=== PATIENT | male | born 1965 | race Hispanic/Latino ===

== ENCOUNTER → 2019-03-07 | Outpatient (REF) | payer OTHER ==
[2019-03-10 08:10] LABS: BORDETELLA PARAPERTUSSIS PCR Negative (Negative); BORDETELLA PERTUSSIS BY PCR Negative (Negative)
== END ==
LOC: M LAB REF 09:09
PROVIDERS: ATTEND Physician Assistant Medical
DX: A37.90 Whooping cough, unspecified species without pneumonia (principal)

== ENCOUNTER → 2019-05-17 | Outpatient (CLI) | payer OTHER ==
--- NOTE | 2019-05-17 14:00 | REP ---
Right shoulder series: Three views. History: Shoulder pain times 1 month. Findings: The glenohumeral and acromioclavicular joints are normally aligned. Periarticular soft tissues are unremarkable. No fracture or subluxation is seen. Impression: Unremarkable right shoulder radiographs. Electronically Signed by Phillip Cyr MD 05/17/2019 01:52 P
== END ==
LOC: M RAD 13:32
PROVIDERS: ATTEND Physician Assistant Medical
DX: M25.511 Pain in right shoulder (principal)

== ENCOUNTER → 2020-11-01 | Outpatient (CLI) | payer OTHER ==
--- NOTE | 2020-11-01 12:13 | REP ---
INDICATION: PAIN. COMPARISON: None. TECHNIQUE: AP, lateral, bilateral oblique views of the left ankle. FINDINGS: No acute fracture or dislocation. Generalized age-related changes noted without overt osteoarthritic findings. Ankle mortise intact. Surrounding soft tissues are normal. Lateral view demonstrates small calcaneal heel spur and Achilles tendinopathy. IMPRESSION: Generalized age-related changes. <Electronically signed by Juan Carlos Lozoya > 11/01/20 [id number]
--- NOTE | 2020-11-01 12:14 | REP ---
INDICATION: PAIN. COMPARISON: None. TECHNIQUE: AP, lateral, bilateral oblique views of the left foot FINDINGS: Generalized age-related changes are appreciated. No acute fracture or dislocation. Surrounding soft tissues are unremarkable. Lateral view demonstrates small calcaneal heel spur and Achilles tendinopathy IMPRESSION: Generalized age-related changes. <Electronically signed by Juan Carlos Lozoya > 11/01/20 [id number]
== END ==
LOC: M SOG 09:47
PROVIDERS: ATTEND Orthopaedic Surgery Sports Medicine
DX: M25.572 Pain in left ankle and joints of left foot (principal); M77.32 Calcaneal spur, left foot; M76.62 Achilles tendinitis, left leg

== ENCOUNTER → 2020-11-30 | Outpatient (CLI) | payer OTHER ==
--- NOTE | 2020-11-30 16:48 | REPVR ---
PROCEDURE INFORMATION: Exam: MR Cervical Spine Without Contrast Exam date and time: 11/30/2020 2:54 PM Age: 55 years old Clinical indication: Radiculopathy; Cervical region; Additional info: Radiculopathy, mariama shoulder impingement TECHNIQUE: Imaging protocol: Multiplanar magnetic resonance images of the cervical spine without contrast. COMPARISON: CR C-SPINE - OUTSIDE PRIOR 10/09/2020 8:59 AM FINDINGS: Cervical vertebral body heights are intact. Straightening of the cervical lordosis. The dens is intact. No abnormal marrow signal. No cord compression, expansion, or abnormal cord signal. Visualized structures of the posterior fossa are unremarkable. Soft tissues are unremarkable. C2-C3: Small central disc protrusion without significant canal or foraminal narrowing. C3-C4: Small posterior disc bulge causes mild canal narrowing and mild bilateral foraminal narrowing. C4-C5: Small posterior disc bulge causes mild canal narrowing and mild bilateral foraminal narrowing. C5-C6: Posterior disc protrusion and uncovertebral spurring cause mild canal narrowing and mild bilateral foraminal narrowing. C6-C7: Posterior disc protrusion and uncovertebral spurring cause mild canal narrowing with mild left and [id number] right foraminal narrowing. C7-T1: No significant canal or foraminal narrowing. IMPRESSION: Multilevel spondylotic changes of the cervical spine, though no evidence of nerve root compression. Electronically signed by: Corky Chou On 11/30/2020 16:48:24 PM
--- NOTE | 2020-12-02 08:48 | REP ---
INDICATION: RADICULOPATHY, AMISH SHOULDER IMPINGEMENT. COMPARISON: Comparison shoulder radiographs are from October 09, 2020. TECHNIQUE: Axial, oblique coronal, and oblique sagittal imaging planes utilized for bilateral shoulder MRI study. T1 and T2 weighted scans are included with without fat saturation. FINDINGS: Right shoulder MRI: Acromioclavicular and glenohumeral articulations are normally aligned on the right. There is a small subacromial subdeltoid bursal effusion. There is osteoarthritic hypertrophy of the AC joint with minimal marrow edema and joint fluid. There is a small quantity of fluid anterosuperiorly adjacent to the glenohumeral joint consistent with a tiny periarticular ganglion. This is inferior and medial to the subcoracoid recess. It measures 8 mm in greatest diameter. No glenohumeral joint effusion is seen. There is subcortical cyst formation in the superolateral humeral head. There is heterogeneous signal intensity in the superior labral cartilage consistent with some fraying. No chaitanya tear is seen. There is moderate glenohumeral chondromalacia. No anterior or posterior labral disruption is seen. The subscapularis and infraspinatus tendons are intact. The biceps tendon is intact. There is some mild tendinosis in the distal supraspinatus tendon but no focal cuff tear is appreciated. No skeletal muscle atrophy or edema. Left shoulder MRI: The left glenohumeral and acromioclavicular joints are well aligned. There is mild to moderate hypertrophy of the AC joint. A small AC joint effusion is seen in there are subcortical cysts in the distal clavicle consistent with osteoarthritis. There is increased signal intensity in the distal supraspinatus tendon on oblique coronal T1 weighted scans with a linear focus of partial-thickness synovial surface T2 hyperintensity on oblique coronal and oblique sagittal T2 weighted scans in the distal supraspinatus consistent with partial thickness cuff lesion. There is mild glenohumeral chondromalacia. There is mild inferolateral acromion process spurring. There is some of mild tendinosis in the sub scapularis tendon infraspinatus tendon is unremarkable. On T2 weighted scans, there is myofascial edema along the infraspinatus muscle proximal to the tendon but extending to the musculotendinous junction. This may reflect partial tear or muscle injury. IMPRESSION: Right shoulder: AC joint osteoarthritis. Small subacromial bursal effusion. Degenerative fraying of the superior labral cartilage and chondromalacia is seen. Supraspinatus tendinosis. There is a small 8 mm periarticular ganglion cyst. Left shoulder: AC joint osteoarthritis. Acromion spurring. Supraspinatus, subscapularis tendinosis. Partial thickness supraspinatus tear. Myofascial a T2 edema along the distribution of the infraspinatus muscle extending to the musculotendinous junction consistent with partial tear. <Electronically signed by Trenton Cyr > 12/02/20 [id number]
== END ==
LOC: M RAD 13:27
PROVIDERS: ATTEND Orthopaedic Surgery Sports Medicine
DX: M75.42 Impingement syndrome of left shoulder (principal); M75.41 Impingement syndrome of right shoulder; M50.21 Other cervical disc displacement, high cervical region; M50.221 Other cervical disc displacement at C4-C5 level; M50.223 Other cervical disc displacement at C6-C7 level; M47.812 Spondylosis without myelopathy or radiculopathy, cervical region; M19.011 Primary osteoarthritis, right shoulder; M25.411 Effusion, right shoulder; M94.211 Chondromalacia, right shoulder; M19.012 Primary osteoarthritis, left shoulder; M75.82 Other shoulder lesions, left shoulder; S46.812A Strain of other muscles, fascia and tendons at shoulder and upper arm level, left arm, initial encounter; X58.XXXA Exposure to other specified factors, initial encounter; Y92.9 Unspecified place or not applicable

== ENCOUNTER → 2022-01-23 | Outpatient (CLI) | payer OTHER | LOC: M SOG 08:14 | PROVIDERS: ATTEND Orthopaedic Surgery | DX: M25.572 Pain in left ankle and joints of left foot (principal); M77.31 Calcaneal spur, right foot; M77.32 Calcaneal spur, left foot; M19.072 Primary osteoarthritis, left ankle and foot; M19.071 Primary osteoarthritis, right ankle and foot ==

== ENCOUNTER → 2022-02-10 | Outpatient (CLI) | payer OTHER | LOC: M PLAIMG 14:37 | PROVIDERS: ATTEND Orthopaedic Surgery | DX: M25.579 Pain in unspecified ankle and joints of unspecified foot (principal); M21.072 Valgus deformity, not elsewhere classified, left ankle ==

== ENCOUNTER → 2024-04-25 | Outpatient (CLI) | payer OTHER | LOC: M RAD 15:11 | PROVIDERS: ATTEND Physician Assistant | DX: J32.8 Other chronic sinusitis (principal) ==